=== PATIENT | male | born 1950 | race Caucasian/White ===

== ENCOUNTER 2016-12-15 03:26 | Emergency (ER) | payer MEDICARE, OTHER ==
[~2016-12-15] VITALS: Ht 180.3 cm; Wt 84.0 kg
[~2016-12-15 03:26] MED LIST: ALLO100T PO; COUM1TAB PO; COUM5TAB PO; COUM7.5T PO; FLUO20TA20 PO; FURO10S PO; LOSA50TA PO; NEBI5 PO
[2016-12-15 03:29] VITALS: BP 150/97; PULSE 113; RESP 16; TEMP 98.8; O2SAT 99
--- NOTE | 2016-12-15 03:44 | PD ---
HPI Chief Complaint: Fall Time Seen by Provider: 03:36 Travel History International Travel<30 days: No Contact w/Intl Traveler<30days: No Traveled to known affect area: No History of Present Illness HPI 66-year-old male with history of A. fib anticoagulated on Xarelto here with complaint of headache after fall. Approximately 1.5 days ago patient had a mechanical trip and fall, landing on the right side of his face. He did not lose consciousness and initially did not have any headache, nausea or vomiting. Over the course the last 1.5 days patient has developed a global bilateral headache, throbbing, moderate. Associated right sided facial pain and swelling. This is primarily around the jaw and cheek. Patient has not had any difficulty chewing, and denies any malocclusion. PFSH Past Medical History Cancer: No Cardiovascular Problems: Yes (AFIB) Diabetes: No Endocrine: No Genitourinary: No Hepatitis: No Hiatal Hernia: No Hypertension: Yes Immune Disorder: No Musculoskeletal: No Neurologic: No Psychiatric: No Reproductive: No Respiratory: No Thyroid Disease: No Past Surgical History Abdominal Surgery: No AICD: No Cardiac Surgery: No Ear Surgery: No Endocrine Surgery: No Eye Surgery: No Genitourinary Surgery: No Gynecologic Surgery: No Joint Replacement: Yes (RIGHT HIP) Oral Surgery: No Pacemaker: No Thoracic Surgery: No Social History Alcohol Use: Yes Tobacco Use: No Substance Use: No Allergies-Medications (Allergen,Severity, Reaction): Coded Allergies: No Known Allergies (Unverified , 12/15/16) Reported Meds & Prescriptions Reported Meds & Active Scripts Active Reported Vitamin B12 (Cyanocobalamin) 500 Mcg Tab 1,000 Mcg PO DAILY Escitalopram (Escitalopram Oxalate) 10 Mg Tab 10 Mg PO DAILY Lansoprazole 15 Mg Capdr 15 Mg PO HS Losartan (Losartan Potassium) 100 Mg Tab 100 Mg PO DAILY Furosemide 20 Mg Tab 20 Mg PO DAILY Propranolol (Propranolol HCl) 10 Mg Tab 10 Mg PO Q12HR Allopurinol 100 Mg Tab 100 Mg PO DAILY Donepezil 10 Mg Tab 10 Mg PO DAILY Namenda (Memantine) 10 Mg Tab 28 Mg PO DAILY Xarelto (Rivaroxaban) 20 Mg Tab 20 Mg PO DAILY [unique E] 400 Mg PO DAILY Coq10 (Coenzyme Q10 (Ubidecarenone)) 100 Mg Cap 1 Cap PO DAILY Review of Systems Except as stated in HPI: all other systems reviewed are Neg Physical Exam Narrative GENERAL: Well-appearing male in no acute distress SKIN: Focused skin assessment warm/dry. HEAD: Atraumatic. Normocephalic. EYES: Pupils equal and round. EOMI. No scleral icterus. No injection or drainage. ENT: No nasal bleeding or discharge. Mucous membranes pink and moist. TMs clear bilaterally. Patient has contusion to the right side of the face primarily around the jaw extending into the lips. He does not have any tenderness to palpation of the bony facial anatomy. Able to break a tongue depressor bilaterally. No malocclusion. Contusion and swelling to the right mandible and lower greater than upper lip. NECK: Supple without midline tenderness palpation CARDIOVASCULAR: Regular rate and rhythm. RESPIRATORY: No accessory muscle use. GASTROINTESTINAL: Abdomen soft, non-tender, nondistended. MUSCULOSKELETAL: Normal gait, moves all extremities normally. No midline tenderness palpation of thoracic or lumbar spine NEUROLOGICAL: Awake and alert. No obvious cranial nerve deficits. Motor grossly within normal limits. Normal speech. PSYCHIATRIC: Appropriate mood and affect; insight and judgment normal. Data Data Last Documented VS Vital Signs Date Time Temp Pulse Resp B/P Pulse Ox O2 Delivery O2 Flow Rate FiO2 12/15/16 03:37 99 12/15/16 03:29 98.8 113 16 150/[address] Brain W/O Iv Contrast(Rout) (12/15/16 03:41) Ondansetron Odt (Zofran Odt) (12/15/16 03:45) Acetaminophen (Tylenol) (12/15/16 03:45) MDM Medical Decision Making Medical Screen Exam Complete: Yes Emergency Medical Condition: Yes Medical Record Reviewed: Yes Differential Diagnosis 66-year-old male here with complaint of headache after mechanical fall 1.5 days ago. Given his anticoagulation, concern for ICH versus closed head injury, skull fracture Narrative Course Patient was given Tylenol. CT of the brain showed no acute abnormalities. Patient was reassured and discharged home. Diagnosis Primary Impression: Closed head injury Qualified Code: S09.90XA - Closed head injury, initial encounter Additional Impressions: Headache Qualified Code: R51 - Acute nonintractable headache, unspecified headache type Facial contusion Qualified Code: S00.83XA - Facial contusion, initial encounter Referrals: Primary Care Physician as needed Additional Instructions: Tylenol, ibuprofen, Aleve as needed for pain. CT of the head today was normal. Follow-up with primary care provider if symptoms persist and return to the ER for the warning signs discussed. Med/Other Pt SpecificInfo: No Change to Meds Disposition: 01 DISCHARGE HOME Condition: Stable Veronica Mari MD December 15, 2016 03:44
[2016-12-15] MEDS ORDERED: ONDANSETRON ODT 4 MG TAB PO ONE (03:45)
[2016-12-15] MEDS ORDERED: ACETAMINOPHEN 500 MG CPLT PO ONE (03:45)
[2016-12-15] MEDS ORDERED: PROP10TA6 PO (03:50)
[2016-12-15] MEDS ORDERED: COQ1100C PO (03:50)
[2016-12-15] MEDS ORDERED: ALLO100T PO (03:50)
[2016-12-15] MEDS ORDERED: [UNRECOGNIZED DRUG - OTHER] PO (03:50)
[2016-12-15] MEDS ORDERED: LOSA100T PO (03:50)
[2016-12-15] MEDS ORDERED: LANS15CA PO (03:50)
[2016-12-15] MEDS ORDERED: FURO20TA PO (03:50)
[2016-12-15] MEDS ORDERED: VITA500T49 PO (03:50)
[2016-12-15] MEDS ORDERED: XARE20TA PO (03:50)
[2016-12-15] MEDS ORDERED: ESCI10TA PO (03:50)
[2016-12-15] MEDS ORDERED: DONE10TA7 PO (03:50)
[2016-12-15] MEDS ORDERED: NAME10TA PO (03:50)
--- NOTE | 2016-12-15 03:57 | RADRPT ---
EXAM DATE/TIME: 12/15/2016 03:51 [facility] COMPARISON: No previous studies available for comparison. INDICATIONS : Trauma, fall. RADIATION DOSE: 40.11 CTDIvol (mGy) MEDICAL HISTORY : Hypertension. Gastroesophageal reflux disease. Alzheimer's. Congestive heart failure. SURGICAL HISTORY : None. ENCOUNTER: Initial ACUITY: 1 day PAIN SCALE: 6/10 LOCATION: cranial TECHNIQUE: Multiple contiguous axial images were obtained of the head. Using automated exposure control and adj ustment of the mA and/or kV according to patient size, radiation dose was kept as low as reasonably a chievable to obtain optimal diagnostic quality images. FINDINGS: CEREBRUM: The ventricles are normal for age. No evidence of midline shift, mass lesion, hemorrhage or acute in farction. No extra-axial fluid collections are seen. POSTERIOR FOSSA: The cerebellum and brainstem are intact. The 4th ventricle is midline. The cerebellopontine angle i s unremarkable. EXTRACRANIAL: The visualized portion of the orbits is intact. There is mild mucosal thickening in the paranasal sin uses. SKULL: The calvaria is intact. No evidence of skull fracture. CONCLUSION: Negative trauma CT. Jacob Bailey MD on December 15, 2016 at 3:55 Board Certified Radiologist. This report was verified electronically.
== END 2016-12-15 04:26 | disposition home or self-care (01) ==
LOC: NEPE 03:26
DX: S09.90XA Unspecified injury of head, initial encounter (principal); S00.83XA Contusion of other part of head, initial encounter; I48.91 Unspecified atrial fibrillation; I10 Essential (primary) hypertension; W01.0XXA Fall on same level from slipping, tripping and stumbling without subsequent striking against object, initial encounter; Z79.01 Long term (current) use of anticoagulants
CPT/HCPCS: 70450

== ENCOUNTER 2017-10-10 21:19 | Emergency (ER) | payer MEDICARE ==
[~2017-10-10] VITALS: Ht 182.9 cm; Wt 90.0 kg
[~2017-10-10 21:19] MED LIST changes: +COQ1100C PO; -COUM1TAB PO; -COUM5TAB PO; -COUM7.5T PO; +DONE10TA7 PO; +ESCI10TA PO; -FLUO20TA20 PO; -FURO10S PO; +FURO20TA PO; +LANS15CA PO; +LOSA100T PO; -LOSA50TA PO; +NAME10TA PO; -NEBI5 PO; +PROP10TA6 PO; +VITA500T35 PO; +XARE20TA PO; +[UNRECOGNIZED DRUG - OTHER] PO
[2017-10-10 21:33] VITALS: BP 113/80; PULSE 80; RESP 18; TEMP 98; O2SAT 97
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
[2017-10-10 22:24] LABS: AUTOMATED NEUTROPHIL # 8.7 TH/MM3 (1.8-7.7); BASOPHIL % 0.3 % (0.0-2.0); EOSINOPHIL # 0.2 TH/MM3 (0-0.4); EOSINOPHIL % 1.4 % (0.0-4.0); HEMATOCRIT 36.5 % (39.0-51.0); HEMOGLOBIN 12.8 GM/DL (13.0-17.0); LYMPH % 10.7 % (9.0-44.0); LYMPHOCYTE # 1.1 TH/MM3 (1.0-4.8); MEAN CELL VOLUME 100.7 FL (80.0-100.0); MEAN CORPUSCULAR HEMOGLOBIN 35.3 PG (27.0-34.0); MEAN PLATELET VOLUME 8.3 FL (7.0-11.0); MONO % 6.4 % (0.0-8.0); MONOCYTE # 0.7 TH/MM3 (0-0.9); NEUT % 81.2 % (16.0-70.0); PLATELET COUNT 182 TH/MM3 (150-450); RED BLOOD COUNT 3.63 MIL/MM3 (4.50-5.90); RED CELL DISTRIBUTION WIDTH 13.3 % (11.6-17.2); WHITE BLOOD COUNT 10.7 TH/MM3 (4.0-11.0)
[2017-10-10] MEDS ORDERED: LORazepam 2 MG/ML VIAL IV PUSH ONE (22:30)
[2017-10-10 22:31] LABS: INTERNATIONAL NORMALIZED RATIO 1.1 RATIO; PROTHROMBIN TIME - PATIENT 11.3 SEC (9.8-11.6)
[2017-10-10 22:32] LABS: ALBUMIN 3.5 GM/DL (3.4-5.0); AST (GOT) 20 U/L (15-37); BICARBONATE 25.1 MEQ/L (21.0-32.0); BLOOD UREA NITROGEN 16 MG/DL (7-18); CALCIUM 8.2 MG/DL (8.5-10.1); CHLORIDE 96 MEQ/L (98-107); GLOMERULAR FILTRATION RATE 75 ML/MIN (>89); GLUCOSE,RANDOM 97 MG/DL (74-106); SODIUM (NA) 132 MEQ/L (136-145)
[2017-10-10 22:33] LABS: ALT (GPT) 18 U/L (12-78)
[2017-10-10 22:35] LABS: ALKALINE PHOSPHATASE 85 U/L (45-117); TOTAL BILIRUBIN ADULT 0.3 MG/DL (0.2-1.0); TOTAL PROTEIN 6.6 GM/DL (6.4-8.2)
--- NOTE | 2017-10-10 22:46 | RADRPT ---
EXAM DATE/TIME: 10/10/2017 22:27 [facility] COMPARISON: No previous studies available for comparison. INDICATIONS : Cephalgia. RADIATION DOSE: 36.80 CTDIvol (mGy) MEDICAL HISTORY : Cardiovascular disease. Cerebrovascular disease. SURGICAL HISTORY : None. ENCOUNTER: Initial ACUITY: 1 day PAIN SCALE: 4/10 LOCATION: cranial TECHNIQUE: Multiple contiguous axial images were obtained of the head. Using automated exposure control and adj ustment of the mA and/or kV according to patient size, radiation dose was kept as low as reasonably a chievable to obtain optimal diagnostic quality images. DICOM format image data is available electro nically for review and comparison. FINDINGS: CEREBRUM: The ventricles are normal for age. No evidence of midline shift, mass lesion, hemorrhage or acute in farction. No extra-axial fluid collections are seen. POSTERIOR FOSSA: The cerebellum and brainstem are intact. The 4th ventricle is midline. The cerebellopontine angle i s unremarkable. EXTRACRANIAL: The visualized portion of the orbits is intact. SKULL: The calvaria is intact. No evidence of skull fracture. CONCLUSION: 1. No acute intracranial abnormalities. Dewayne Garcia MD on October 10, 2017 at 22:43 Board Certified Radiologist. This report was verified electronically.
--- NOTE | 2017-10-10 22:53 | RADRPT ---
EXAM DATE/TIME: 10/10/2017 22:27 [facility] COMPARISON: No previous studies available for comparison. INDICATIONS : Fall neck pain. RADIATION DOSE: 21.53 CTDIvol (mGy) MEDICAL HISTORY : Cardiovascular disease. Cerebrovascular disease. SURGICAL HISTORY : None. ENCOUNTER: Initial ACUITY: 1 day PAIN SCALE: 4/10 LOCATION: neck TECHNIQUE: Volumetric scanning of the cervical spine was performed. Multiplanar reconstructions in the sagittal, coronal and oblique axial planes were performed. Using automated exposure control and adjustment o f the mA and/or kV according to patient size, radiation dose was kept as low as reasonably achievable to obtain optimal diagnostic quality images. DICOM format image data is available electronically f or review and comparison. FINDINGS: VERTEBRAE: Normal vertebral body height. ALIGNMENT: No evidence of subluxation. C2-C3: The bony spinal canal is normal in size. No evidence of disc bulge or herniation. The neural forami na are bilaterally patent. C3-C4: The bony spinal canal is normal in size. No evidence of disc bulge or herniation. The neural forami na are bilaterally patent. C4-C5: The bony spinal canal is normal in size. No evidence of disc bulge or herniation. The neural forami na are bilaterally patent. C5-C6: The bony spinal canal is normal in size. No evidence of disc bulge or herniation. The neural forami na are bilaterally patent. C6-C7: The bony spinal canal is normal in size. No evidence of disc bulge or herniation. The neural forami na are bilaterally patent. C7-T1: The bony spinal canal is normal in size. No evidence of disc bulge or herniation. The neural forami na are bilaterally patent. CONCLUSION: 1. No acute findings. Moderate degenerative disc disease and facet arthropathy. Mild cervical scolios is. Dewayne Garcia MD on October 10, 2017 at 22:49 Board Certified Radiologist. This report was verified electronically.
[2017-10-11 01:02] VITALS: BP 97/71; PULSE 85; RESP 18; O2SAT 100
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
--- NOTE | 2017-10-11 10:09 | EKG ---
Date Performed: 10/10/2017 Time Performed: 23:14:28 PTAGE: 67 years EKG: Baseline artifact present ATRIAL FIBRILLATION NONSPECIFIC ST & T-WAVE ABNORMALITY ABNORMAL RHYTHM ECG No significant change from prior electrocardiogram. PREVIOUS TRACING : 05/07/2015 06.29 DOCTOR: Nate Wood Interpretating Date/Time 10/11/2017 10:08:42
== END 2017-10-11 01:20 | disposition home or self-care (01) ==
LOC: NEPC 21:19
DX: S09.90XA Unspecified injury of head, initial encounter (principal); W19.XXXA Unspecified fall, initial encounter; F10.129 Alcohol abuse with intoxication, unspecified; Y90.8 Blood alcohol level of 240 mg/100 ml or more; G30.9 Alzheimer's disease, unspecified; F02.80 Dementia in other diseases classified elsewhere, unspecified severity, without behavioral disturbance, psychotic disturbance, mood disturbance, and anxiety; I48.91 Unspecified atrial fibrillation; I11.0 Hypertensive heart disease with heart failure; I50.9 Heart failure, unspecified
CPT/HCPCS: 70450; 72125; 80053; 80307; 85025; 85610; 85730; 93005; 96374; 99285; J2060